=== PATIENT | female | born 1990 | race Hispanic/Latino ===

== ENCOUNTER 2023-11-02 14:07 | Emergency (ER) | payer BC ==
[~2023-11-02] VITALS: Ht 160 cm; Wt 65.8 kg
[2023-11-02 14:49] VITALS: BP 143/100; PULSE 67; RESP 22; O2SAT 99
[2023-11-02 14:56] LABS: APPEARANCE,URINE CLEAR (CLEAR); BILIRUBIN,URINE NEGATIVE (NEGATIVE); COLOR,URINE YELLOW (YELLOW); GLUCOSE, URINE (UA) NEGATIVE (NEGATIVE); KETONES,URINE 20 mg/dL (NEGATIVE); LEUKOCYTE ESTERASE ,URINE 75 Leu/uL (NEGATIVE); NITRATE,URINE NEGATIVE (NEGATIVE); OCCULT BLOOD,URINE NEGATIVE (NEGATIVE); PH,URINE 6.5 (5.0-8.0); PROTEIN,URINE 20 mg/dL (NEGATIVE); UROBILINOGEN,URINE 0.2 mg/dL (0.2-1.0)
[2023-11-02 14:59] LABS: ADD UA MICROSCOPIC YES
[2023-11-02 15:00] LABS: BACTERIA,URINE RARE /HPF (None Seen); MUCUS,URINE FEW LPF (None Seen); SQUAMOUS EPITHELIAL CELL,UR FEW /HPF (0-2)
[2023-11-02 15:06] LABS: RAPID GROUP A STREP negative (NEGATIVE)
[2023-11-02 15:10] LABS: SARS-CoV-2, RNA, NAAT NEGATIVE SARS CoV-2 (NEGATIVE)
[2023-11-02 15:15] LABS: INFLUENZA TYPE A Negative For Type A (NEGATIVE); INFLUENZA TYPE B Negative For Type B (NEGATIVE)
[2023-11-02] MEDS ORDERED: METOCLOPRAMIDE 10 MG/2 ML VIAL IM ONE (15:30)
[2023-11-02] MEDS ORDERED: ACETAMINOPHEN 500 MG TABLET PO ONE (15:30)
[2023-11-02 15:36] LABS: HCG,QUALITATIVE URINE NEGATIVE (NEGATIVE)
[2023-11-02 15:40] LABS: BASOPHILS # (AUTO) 0.02 K/uL (0.00-0.20); BASOPHILS % (AUTO) 0.3 % (0.0-5.0); EOSINOPHILS # (AUTO) 0.08 K/uL (0.00-0.70); HEMATOCRIT 38.5 % (36-48); IMMATURE GRANULOCYTE ABSOLUTE 0.03 K/uL (0-1); LYMPHOCYTES # (AUTO) 1.6 K/uL (1.0-4.8); LYMPHOCYTES % (AUTO) 19.6 % (21.0-51.0); MEAN CORPUSCULAR HEMOGLOBIN 28.2 pg (27.0-33.0); MEAN CORPUSCULAR HGB CONC 33.5 g/dL (32.0-36.0); MEAN CORPUSCULAR VOLUME 84.1 fL (79-99); MONOCYTES # (AUTO) 0.6 K/uL (0.1-1.0); MONOCYTES % (AUTO) 7.3 % (3.0-13.0); NEUTROPHILS # (AUTO) 5.6 K/uL (1.8-7.7); NEUTROPHILS % (AUTO) 71.4 % (40.0-77.0); PLATELET COUNT (AUTO) 190 K/uL (130-400); RED BLOOD CELL COUNT(AUTO) 4.58 MIL/uL (4.00-5.50); RED CELL DISTRIBUTION WIDTH 13.2 % (11.0-15.5); WHITE BLOOD COUNT (AUTO) 7.9 K/uL (4.8-10.8)
[2023-11-02 15:50] LABS: CREATININE 0.9 mg/dL (0.5-1.5); POTASSIUM 3.6 mmol/L (3.5-5.1)
[2023-11-02 15:55] LABS: ALBUMIN 3.8 g/dL (3.5-5.0); BILIRUBIN,TOTAL 0.5 mg/dL (0.2-1.0); TOTAL PROTEIN, SERUM 7.7 g/dL (6.0-8.3)
[2023-11-02] MEDS ORDERED: CEFTRIAXONE 1G VIAL IV ONE (16:00)
[2023-11-02] MEDS ORDERED: KETOROLAC 30MG VIAL (30MG/ML) IVP ONE (16:30)
[2023-11-02] MEDS ORDERED: ONDA4TAB10 PO (16:58)
[2023-11-02] MEDS ORDERED: SULF1TAB42 PO (16:58)
[2023-11-02] MEDS ORDERED: IBUP-2070 PO (16:58)
== END 2023-11-02 17:14 | disposition home or self-care (01) ==
LOC: EDH 14:07
DX: N39.0 Urinary tract infection, site not specified (principal); B34.9 Viral infection, unspecified; F45.8 Other somatoform disorders; Z20.822 Contact with and (suspected) exposure to COVID-19
CPT/HCPCS: 99284; 96374; 87635; 96375; 80053; 85025; 87088; 87880; 87804 ×2; 81001; 81025; 36415; 96372; C9803; J0696; J1885; J2765